=== PATIENT | female | born 1995 | race Caucasian/White ===

== ENCOUNTER 2023-07-28 16:24 | Emergency (ER) | payer MEDICAID ==
[~2023-07-28] VITALS: Ht 170.2 cm; Wt 96.2 kg
[2023-07-28 16:37] VITALS: BP 130/89; PULSE 109; RESP 20; TEMP 98.4; O2SAT 99
[2023-07-28] MEDS: ACETAMINOPHEN EXTRA STRENGTH 500 MG TAB PO ONE (18:12)
[2023-07-28] MEDS ORDERED: ONDA-188 SL (19:01)
[2023-07-28] MEDS ORDERED: CYCL-711 PO (19:01)
[2023-07-28] MEDS: KETOROLAC 30 MG/ML VIAL IM ONE (19:04)
[2023-07-28 19:14] VITALS: BP 134/65; PULSE 80; RESP 18; TEMP 98.2; O2SAT 97
== END 2023-07-28 19:20 | disposition home or self-care (01) ==
LOC: MED 16:24
DX: S93.401A Sprain of unspecified ligament of right ankle, initial encounter (principal); S09.90XA Unspecified injury of head, initial encounter; F07.81 Postconcussional syndrome; Z79.899 Other long term (current) drug therapy; W21.02XA Struck by soccer ball, initial encounter; Y93.66 Activity, soccer; Y92.322 Soccer field as the place of occurrence of the external cause; Y99.8 Other external cause status
CPT/HCPCS: 70450; 73610; 73630; 96372; 99285; J1885; Q0092

== ENCOUNTER 2023-12-26 23:33 | Emergency (ER) | payer MEDICAID ==
[~2023-12-26] VITALS: Ht 170.2 cm; Wt 91.6 kg
[~2023-12-26 23:33] MED LIST: CYCL-711 PO; ONDA-188 SL
[2023-12-26 23:49] VITALS: BP 117/69; PULSE 97; RESP 16; TEMP 98.5; O2SAT 100
[2023-12-27 02:05] VITALS: BP 121/75; PULSE 94; RESP 16; TEMP 98.2; O2SAT 100
[2023-12-27] MEDS ORDERED: AMOX1TAB8 PO (02:08)
[2023-12-27] MEDS ORDERED: PSEU120T31 PO (02:08)
[2023-12-27] MEDS: KETOROLAC 30 MG/ML VIAL IM ONE (02:12)
[2023-12-27] MEDS: PSEUDOEPHEDRINE 30 MG TAB PO ONE (02:13)
== END 2023-12-27 02:35 | disposition home or self-care (01) ==
LOC: MED 23:33
DX: H66.92 Otitis media, unspecified, left ear (principal); Z79.899 Other long term (current) drug therapy
CPT/HCPCS: 96372; 99283; J1885

== ENCOUNTER 2024-01-28 12:16 | Emergency (ER) | payer MEDICAID ==
[~2024-01-28] VITALS: Ht 170.2 cm; Wt 86.2 kg
[~2024-01-28 12:16] MED LIST changes: +AMOX1TAB8 PO; +PSEU120T31 PO
[2024-01-28 12:21] VITALS: BP 139/79; PULSE 110; RESP 20; TEMP 98.4; O2SAT 100
== END 2024-01-28 12:39 | disposition home or self-care (01) ==
LOC: MED 12:16
DX: S70.12XA Contusion of left thigh, initial encounter (principal); S70.11XA Contusion of right thigh, initial encounter; F10.10 Alcohol abuse, uncomplicated; F41.9 Anxiety disorder, unspecified; Z79.899 Other long term (current) drug therapy; Y90.9 Presence of alcohol in blood, level not specified; J45.909 Unspecified asthma, uncomplicated; V49.69XA Unspecified car occupant injured in collision with other motor vehicles in traffic accident, initial encounter; Y93.89 Activity, other specified; Y92.89 Other specified places as the place of occurrence of the external cause; Y99.8 Other external cause status
CPT/HCPCS: 99283